=== PATIENT | female | born 1985 | race African-American/Black ===

== ENCOUNTER 2024-02-20 17:08 | Emergency (ER) | payer SELFPAY ==
[2024-02-20] VITALS (8 sets, daily range): BP systolic 110–116; BP diastolic 57–76; PULSE 67–92; RESP 14–16; TEMP 37; O2SAT 97–99
--- NOTE | ~2024-02-20 | CT_ITS ---
EXAMINATION: CT abdomen pelvis w con DATE: 02/20/2024 19:22 INDICATION: lower abd pain, hematuria, vag bleeding TECHNIQUE: Computed tomography (CT) of the abdomen and pelvis was performed with 100 mL Omnipaque-350 intravenous contrast. Automated exposure control and iterative reconstruction technique were employe d. The dose-length product was 1022.98 mGy-cm. COMPARISON: Ultrasound transvaginal, same date. FINDINGS: Lower thorax: Unremarkable Liver: Enlarged. Biliary/Gallbladder: Cholelithiasis. No inflammatory change. No bile duct dilation. Pancreas: No mass or duct dilation. Spleen: Mildly enlarged. Adrenals:No mass. Kidneys: No suspicious mass, obstructing stone, or hydronephrosis. GI tract: No small or large bowel dilation. Normal appendix. Mesentery/Peritoneum: No ascites, mass, or free air. Retroperitoneum: No mass. Pelvis: Anteverted, retroflexed uterus. Normal urinary bladder. Normal bilateral ovaries. Sterilizati on clips.. Soft Tissues: Small uncomplicated fat-containing umbilical hernia. Bones: No acute osseous finding. IMPRESSION: Hepatosplenomegaly. Otherwise, no acute abdominal pelvic process detected. Reviewed, dictated and finalized at location K.
--- NOTE | ~2024-02-20 | US_ITS ---
EXAMINATION: US transvaginal DATE: 02/20/2024 18:27 INDICATION: AUB, lower abd pain TECHNIQUE: Multiple transvaginal sonographic images of the pelvis were obtained. COMPARISON: None. FINDINGS: Uterus: 10.6 x 5.9 x 6.8 cm. Endometrial complex measures 7 mm. Right Ovary: 2.6 x 2.0 x 2.1 cm. Vascular flow is present. No adnexal mass. Left Ovary: Not visualized. No adnexal mass. There is no free fluid in the pelvis. IMPRESSION: Left ovary not visualized, otherwise normal transvaginal pelvic sonogram findings. Reviewed, dictated and finalized at location K. IMPRESSION: Left ovary not visualized, otherwise normal transvaginal pelvic sonogram xavier szymanski
--- NOTE | 2024-02-20 17:16 | ED.FEMALEGU ---
HPI - Female Genitourinary General Chief complaint: Vaginal Bleeding Stated complaint: ABNORMAL VAG BLEEDING Time Seen by Provider: 02/20/24 17:14 Source: patient Mode of arrival: ambulatory Limitations: no limitations and language barrier History of Present Illness HPI Narrative: Patient is a 38 y/o female who presents to the ED with c/o abnormal vaginal bleeding. patient is primarily Jordanian-speaking. [employer] monitor car operator was utilized for assistance with translation. Patient reports she had her normal menstrual cycle 2 weeks ago. She then began bleeding again on Sunday, states it has been persistent since then. States it has been fairly heavy with some clots. She reports pain throughout her lower abdomen, denies N/V, fevers, dysuria, hematuria, dizziness/lightheadedness. Patient does not currently have an OBGYN, states it has been 5 years since she has seen one. Related Data Allergies Allergy/AdvReac Type Severity Reaction Status Date / Time No Known Allergies Allergy Verified 02/20/24 17:32 Review of Systems Review of Systems: CONSTITUTIONAL: Denies fever, chills, or sweats. GASTROINTESTINAL: See HPI. GENITOURINARY: See HPI. NEUROLOGIC: Denies lightheadedness, dizziness, numbness, or weakness. All systems reviewed & are unremarkable except as noted in HPI and below Exam Narrative: GENERAL: Well appearing, well-nourished, non-toxic, in no acute distress. HEAD: Normocephalic, atraumatic. RESPIRATORY: Airway patent, respirations nonlabored. Clear to auscultation bilaterally, no rales, rhonchi, wheezing. CARDIOVASCULAR: Regular rate and rhythm without murmurs, rubs, or gallops. ABDOMINAL: Soft, Mild tenderness throughout suprapubic region, nondistended. Normoactive BS. PELVIC: Normal external genitalia. Mild amount of dark red bleeding in vaginal vault, no significant clots. Cervix appears unremarkable. No significant CMT. MUSCULOSKELETAL: Moves all extremities. No gross deformities. SKIN: Warm, dry, normal color. NEURO: A&O X3. Speech clear. Cranial nerves II-XII grossly intact. Steady gait. No ataxic movements. PSYCHIATRIC: Appropriate mood and affect. Normal interaction. Course Vital Signs Vital signs: Vital Signs Temperature 98.6 F 02/20/24 17:16 Pulse Rate 92 02/20/24 17:16 Respiratory Rate 16 02/20/24 17:16 Blood Pressure 116/76 02/20/24 17:16 Pulse Oximetry 99 02/20/24 17:16 Oxygen Delivery Room Air 02/20/24 17:16 Temperature 98.6 F 02/20/24 17:16 Pulse Rate 67 02/20/24 20:49 Respiratory Rate 14 02/20/24 20:49 Blood Pressure 112/63 02/20/24 20:49 Pulse Oximetry 99 02/20/24 20:49 Oxygen Delivery Room Air 02/20/24 17:16 MDM - Female Genitourinary MDM Narrative Medical decision making narrative: Patient presented to ED with abnormal vaginal bleeding, intermenstrual bleeding. Vital signs are stable upon arrival. No evidence of hemodynamic instability. CBC with hemoglobin of 11. No records to compare to. Microcytic. No leukocytosis. Normal platelets. BMP unremarkable. Urinalysis with lots of blood, no evidence of infection. Pelvic ultrasound obtained unremarkable. No adnexal masses. No uterine abnormalities. CT abd/pelvis obtained and also unremarkable, hepatosplenomegaly. pelvic exam was performed and without evidence of significant bleeding. No hemorrhage or pooling of fluid. Feel patient is safe for discharge home at this time with close OBGYN follow-up. Will referred to on-call OBGYN. Advised to continue to monitor at home, given strict return precautions. She agrees with plan. Discharged in stable condition. Vital signs stable at time of D/C. Medical Records Attestation: I reviewed the patient's medical records. Lab Data Attestation: I reviewed the patient's lab results. 02/20/24 17:33 02/20/24 17:33 Labs: Lab Results 02/20/24 02/20/24 Range/Units 17:33 18:43 WBC 10.0 (4.5-10.0) K/
[2024-02-20 17:39] LABS: Basophils Percent Auto 0.4 % (0.2-1.2); Eosinophils Absolute Auto 0.3 K/mm3 (0-0.3); Eosinophils Percent Auto 2.6 % (0-4.4); Immature Granulocyte Absolute 0.03 K/mm3 (0.00-0.031); Immature Granulocyte Percent A 0.3 % (0-0.5); Lymphocytes Absolute Auto 3.08 K/mm3 (0.9-3.2); Lymphocytes Percent Auto 30.9 % (18.3-44.2); Mean Corpuscular HGB Conc 30.6 g/dl (32-36); Mean Corpuscular Hemoglobin 23.2 pg (26-34); Mean Corpuscular Volume 75.8 fl (80-100); Monocytes Absolute Auto 0.6 K/mm3 (0.1-0.6); Monocytes Percent Auto 5.8 % (2.6-8.5); Platelet Count Result 360 k/mm3 (150-375); Red Blood Count 4.75 M/mm3 (4.2-5.4); Red Cell Distribution Width 14.9 % (11.5-14.5)
[2024-02-20 17:48] LABS: Anion Gap 8 mmol/L (4-12); Blood Urea Nitrogen 11 mg/dL (7-17); Calcium 8.9 mg/dL (8.4-10.2); Carbon Dioxide 27 mmol/L (22-30); Chloride 103 mmol/L (98-107); Estimated Glomerular Filt Rate > 60; Glucose 178 mg/dL (65-110); Potassium 3.8 mmol/L (3.4-5.0); Sodium 138 mmol/L (137-145)
[2024-02-20 18:52] LABS: Appearance Urine Clear (Clear); Bacteria Urine None Seen /hpf; Bilirubin Urine Negative (Negative); Blood Urine 3+ (Negative); Color Urine Yellow (Yellow); Glucose Urine UA Negative (Negative); Ketones Urine Negative (Negative); Leukocyte Esterase Ur Negative LEU/UL (Negative); Nitrate Urine Negative (Negative); Non Pathogenic Casts 0-2; Protein Urine Negative (Negative); RBC Urine >100 /hpf (0-2); Specific Grav Ur 1.008 (1.001-1.035); Squamous Epithelial Cell Urine None Seen /hpf (Few); Urobilinogen Urine 0.2 mg/dL (<2.0); WBC Urine 0-5 /hpf (0-3)
[2024-02-20 18:57] LABS: Add Urine Microscopic? YES
== END 2024-02-20 20:50 | disposition home or self-care (01) ==
PROVIDERS: Emergency Provider Physician Assistant
DX: N93.8 Other specified abnormal uterine and vaginal bleeding (principal); R16.2 Hepatomegaly with splenomegaly, not elsewhere classified
CPT/HCPCS: 36415; 74177; 76830; 80048; 81001; 85025; 99284; Q9967

== ENCOUNTER 2025-03-17 17:57 | Emergency (ER) | payer SELFPAY ==
[2025-03-17 18:07] VITALS: BP 117/77; PULSE 87; RESP 16; TEMP 36.6; O2SAT 98
--- NOTE | 2025-03-17 18:17 | ED.FEMALEGU ---
HPI - Female Genitourinary General Chief complaint: Urogenital-Female Stated complaint: Urinary Irritation Time Seen by Provider: 03/17/25 18:17 Source: patient and RN notes reviewed Mode of arrival: ambulatory Limitations: no limitations History of Present Illness HPI Narrative: 39 y/o female presented for c/o painful urination x3 weeks. Reports urinary frequency and urgency. Endorses diarrhea today. Denies hematuria, nausea, vomiting, abdominal pain, flank pain, constipation, fevers or chills. Related Data Allergies Allergy/AdvReac Type Severity Reaction Status Date / Time No Known Allergies Allergy Verified 03/17/25 18:17 Review of Systems Review of Systems: CONSTITUTIONAL: Denies body aches, fever, chills, or sweats. CARDIOVASCULAR: Denies chest pain, palpitations, or edema. RESPIRATORY: Denies cough or dyspnea. GASTROINTESTINAL: Denies abdominal pain, nausea, vomiting, or diarrhea. GENITOURINARY: Reports dysuria, frequency, urgency,denies hematuria, flank pain, discharge SKIN: Denies rash, itching, or wounds. MUSCULOSKELETAL: Denies back pain or myalgia. PMFSH Comments At time of signature, I have reviewed and agree with nursing past medical, surgical, social and family history unless otherwise noted. Please see nursing chart for further information. There is no relevant family history pertinent to the presenting complaint Exam Narrative: GENERAL: Well-appearing and in no acute distress. ENT: Mucous membranes pink and moist. NECK: Normal AROM. Supple. CHEST: No respiratory distress. Clear to auscultation. HEART: Regular rate and rhythm. ABDOMEN: Soft, nontender, nondistended, normal active bowel sounds. No CVA tenderness SKIN: Warm, dry, no rash. NEURO: No focal deficits. Alert and oriented x3. Gait steady. PSYCH: Normal affect. Course Course Emergency Course: Patient is aware of diagnosis, understands and agrees to treatment plan. Anticipatory guidance given. Patient agrees to follow-up as directed and is aware of reasons to seek care at the emergency department. Portions of this record may have been created with voice recognition software Level of Care: Express Care Visit Vital Signs Vital signs: Vital Signs Temperature 97.9 F 03/17/25 18:07 Pulse Rate 87 03/17/25 18:07 Respiratory Rate 16 03/17/25 18:07 Blood Pressure 117/77 03/17/25 18:07 Pulse Oximetry 98 03/17/25 18:07 Oxygen Delivery Room Air 03/17/25 18:07 Temperature 97.9 F 03/17/25 18:07 Pulse Rate 87 03/17/25 18:07 Respiratory Rate 16 03/17/25 18:07 Blood Pressure 117/77 03/17/25 18:07 Pulse Oximetry 98 03/17/25 18:07 Oxygen Delivery Room Air 03/17/25 18:07 Reviewed MDM - Female Genitourinary MDM Narrative Medical decision making narrative: Discussed physical exam findings and urine dip. Will treat for UTI and yeast today, v/u. Advised supportive measures and signs/symptoms to go to the ER. Pt is appropriate for outpt treatment and f/u. At time of reviewing DC instructions, pt requested medicine to lose weight, chronic bilateral knee pain, occasional sweating and chest pains. Pt is advised to go to the ER for the complaint of chest pain and further evaluation at this time. Pt refuses at this time. She is aware of the risk of cardiac etiology. Pt denies cp at this time. Pt is primarily [place] Rican speaking. Unable to utilize the in home sales consultant service due to equipment failure. Pt's dtr assisted with translation per pt request and had to utilize [employer] translate. Differential Diagnosis Differential diagnosis: Likely urinary tract infection, bacterial vaginosis, vaginitis and cystitis Lab Data Labs: Lab Results 03/17/25 Range/Units 18:47 POC Urine Color Yellow POC Urine Clarity Cloudy POC Urine pH 6.0 POC Ur Specif [place] 1.015 POC Urine Protein Negative (Negative) POC Ur Glucose (UA) Negative (Negative) POC Urine Ketones Negative (Negative) POC Urine Blood Trace (Negative) POC Urine Nitrite Negative (Negative) POC Urine Bilirubin Negative (Negative) POC Urine Urobilinogen 1.0 POC U Leukocyte Esteras 1+ (Negative) Discharge Plan Discharge Clinical Impression: Urinary tract infection Qualifiers: Urinary tract infection type: site unspecified Hematuria presence: without hematuria Qualified Code(s): N39.0 - Urinary tract infection, site not specified Vaginitis Qualifiers: Chronicity: acute Qualified Code(s): N76.0 - Acute vaginitis Patient Disposition: Home Condition: Stable Instructions: Antibiotic Form, Urinary Tract Infection in Women (ED), Yeast Infection (ED) Additional Instructions: Hablamos de la necesidad de ir a urgencias si tienes dolor en el pecho, que puede estar relacionado con el coraz?n. Ahora te niegas a ir a urgencias. [place] el antibi?tasneem seg?n lo prescrito. Se analizar? la orina para un cultivo que identificar? el tipo de bacteria que causa la infecci?n. Si el cultivo muestra que el antibi?tasneem no elimina la infecci?n, se le notificar? y se le recetar? un nuevo antibi?tasneem. [place] la ingesta de agua. Necesitar? hablar con un m?dico. Llame para programar roor nataliia. Acuda a urgencias si presenta cualquier empeoramiento de los s?ntomas o inquietud. Patient Language: [place]ican Prescriptions: New fluconazole 150 mg tablet 150 mg PO DAILY Qty: 2 0RF nitrofurantoin monohyd/m-cryst [Macrobid] 100 mg capsule 100 mg PO Q12H 5 Days Qty: 10 0RF Rx Instructions: must administer with a meal/food Follow-up/Referrals: PHYSICIAN,FINANCIAL SYSTEMS ANALYST [Primary Care Provider] - Time of Disposition: 18:43
[2025-03-17 18:48] LABS: EDUAAPPEAR Cloudy; EDUABILI Negative (Negative); EDUABLOOD Trace (Negative); EDUACOLOR1 Yellow; EDUAGLUCOSE Negative (Negative); EDUAKETONE Negative (Negative); EDUALEUKO 1+ (Negative); EDUANITRATE Negative (Negative); EDUAPH 6.0; EDUAPROTEIN Negative (Negative); EDUASPGRAVITY 1.015; EDUAUROBILI 1.0
== END 2025-03-17 18:50 | disposition home or self-care (01) ==
PROVIDERS: Emergency Provider Nurse Practitioner Family
DX: N39.0 Urinary tract infection, site not specified (principal); N76.0 Acute vaginitis
CPT/HCPCS: 81003; 99213; G0463

== ENCOUNTER 2025-03-28 18:10 | Emergency (ER) | payer SELFPAY ==
--- NOTE | ~2025-03-28 | CT_ITS ---
EXAMINATION: CT abdomen pelvis wo con DATE: 03/28/2025 20:24 INDICATION: lower abd pain, back pain, uti TECHNIQUE: Computed tomography (CT) of the abdomen and pelvis was performed without intravenous contr ast. Automated exposure control and iterative reconstruction technique were employed. The dose-length product was 1077.00 mGy-cm. COMPARISON: 02/20/2024. FINDINGS: Lower thorax: Unremarkable Liver: Enlarged. Biliary/Gallbladder: Cholelithiasis. No inflammatory changes. No bile duct dilation. Pancreas: No mass or duct dilation. Spleen: Normal. Adrenals:No mass. Kidneys: No suspicious mass, obstructing stone, or hydronephrosis. GI tract: No small or large bowel dilation. Normal appendix. Mesentery/Peritoneum: No ascites, mass, or free air. Retroperitoneum: No mass. Pelvis: Moderately distended urinary bladder with mild wall thickening. Normal uterus. Normal bilater al ovaries. Bilateral tubal ligation clips. Soft Tissues: Small uncomplicated fat-containing umbilical hernia. Bones: No acute osseous finding. Mild degenerative disc disease at L4-5. Severe degenerative disc di sease at L5-S1. No severe central canal or neural foraminal narrowing. IMPRESSION: Hepatomegaly. Cholelithiasis, without CT evidence of cholecystitis. Bladder wall thickening as can be seen with cystitis. Otherwise, no acute abdominopelvic process detected. Reviewed, dictated and finalized at location K.
[2025-03-28 18:12] VITALS: BP 100/80; PULSE 72; RESP 16; TEMP 36.6; O2SAT 98
--- OUTSIDE RECORDS SUMMARY | 2025-03-28 18:12 | XMS_ITS | Clinical Summary ---
Author Organization [facility] Address [address] [place] [address] Care Team Providers Care Wind Turbine Sheet Metal Worker Name Role Phone Unknown, Notinfile Primary Care Provider Unavail able No, Physician Unavailable Unknown, Notinfile Unavailable Unavailable Allergies No known active allergies Surgical History Surgery Date Site/Laterality Comments US ABDOMEN COMPLETE W LIVER DOPPLER (C) 09/20/2018 R ight Social History Tobacco Use Types Packs/Day Years Used Date Smoking Tobacco: Never Assessed Personal Safety Answer Date Recorded Have you ever been in or are you currently in a harmful physical or emotional relationship or is someone making you feel afraid or unsafe? 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 Gender Identity Not on file Sexual Orientation Not on file Obstetrics History Last Filed Vital Signs Vital Sign Reading Time Taken Comments Blood Pressure 119/76 03/21/2023 6:59 PM CDT Pulse 77 03/21/2023 6:59 PM CDT Temperature 36.4 C (97.6 F) 03/21/2023 6:59 PM CDT Respiratory Rate 18 03/21/2023 6:59 PM CDT Oxygen Saturation 99% 03/21/2023 6:59 PM CDT Inhaled Oxygen Concentration - - Weight 86.4 kg (190 lb 7.6 oz) 03/21/2023 6:59 P M CDT Height 165.1 cm (5' 5) 03/21/2023 7:16 PM CDT Body Mass Index 31.7 03/21/2023 6:59 PM CDT Plan of Treatment Health Maintenance Due Date Last Done Comments Breast Cancer Screening-Mammogram 1985 Cervical Cancer Screening 1983 Depression Screening 1983 Hepatitis C Screening 1983 Varicella Vaccines (1 of 2 - 13+ 2-dose series) 1996 Hepatitis B Screening 2001 Regular Well Visit/Exam 18-64 2001 HPV Vaccines (1 - 3-dose SCD M series) 2010 Covid-19 Vaccine (2 - 4-2 5 season) 2024 09/24/2021 Influenza Vaccine (#1) 2025 8, 07/29/2015 DTaP/Tdap/Td Vaccine (2 - Td or Tdap) 07/02/2028 07/02/2018 Pneumococcal vaccine <65 Aged Out No longer eligible based on patient's age to complete this topic Insurance Care Teams Wind Turbine Sheet Metal Worker Relationship Specialty Start Date End Date Unknown, Notinfile PCP - General 03/21/23 No, Physician 03/21/23 Unknown, Notinfile 01/21/23
--- OUTSIDE RECORDS SUMMARY | 2025-03-28 18:12 | XMS_ITS | Clinical Summary ---
Author Organization [facility] Address [address] [place] [address] Care Team Providers Care Marketing Project Lead Name Role Phone Unavailable Primary Care Provider Unavailabl e Source Comments [facility],non-owned Affiliates and Associated Physician Practices is amultiple site organization consisting of ambulatory clinics and hospital sitesin [place], [place], [place] and [place]. This disclosure is being madepursuant to the Care Everywhere program and may not contain all information available regarding this patient. Last updated 18.[facility] [employer] Allergies No known active allergies Medications * Be aware that medications may not be up to date on this document. Alwaysverify current medications with the patient. Vit-Fe Fumarate-FA ( VITAMIN) 28-0.8 MG tablet Take 1 tablet by mouth once daily Active insulin NPH (HUMULIN N; NOVOLIN N) vial Inject 18 Units subcutaneously at bedtime Active Active Problems Problem Noted Date Diagnosed Date Polyhydramnios affecting 08/15/2018 Insulin controlled gestation al diabetes mellitus (GDM) in third trimester 06/25/2018 Family History Relation Name Status Comments Father Alive Maternal Grandfather Alive Maternal Grandmother Mother Alive Paternal Grandfather Paternal Grandmother Alive Social History Tobacco Use Types Packs/Day Years Used Date Smoking Tobacco: Never Smokeless Tobacco: Never Alcohol Use Standard Drinks/Week Comments Yes 0 (1 standard drink = 0.6 oz pur e alcohol) Comments No Sex and Gender Information Value Date Recorded Sex Assigned at Not on file Legal Sex Female 7:11 AM BOGGER OPERATOR Gender Identity Not on file Sexual Orientation Not on file Last Filed Vital Signs Vital Sign Reading Time Taken Comments Blood Pressure 94/58 08/15/2018 10:23 AM BOGGER OPERATOR Pulse 100 08/15/2018 10:23 AM BOGGER OPERATOR Temperature - - Respiratory Rate 16 08/01/2018 9:33 AM BOGGER OPERATOR Oxygen Saturation - - Inhaled Oxygen Concentration - - Weight 96.2 kg (212 lb 1.6 oz) 08/15/2018 10:23 AM BOGGER OPERATOR Height 154.9 cm (5' 1) 08/15/2018 10:23 AM BOGGER OPERATOR Body Mass Index 40.08 08/15/2018 10:23 AM BOGGER OPERATOR Plan of Treatment Health Maintenance Due Date Last Done Comments LIPID TESTING 1983 MAMMOGRAM 1983 HIV SCREENING 1998 HEPATITIS C SCREENING 09/20/2001 DTAP/TDAP/TD VACCINES (1 - Tdap) 2002 HEPATITIS B VACCINE (1 of 3 - 19+ 3-dose series) 2002 HPV VACCINE (1 - 3-dose SCDM series) 2010 COVID-19 VACCINE ( - 2023-2 5 season) 2024 DEPRESSION SCREENING 08/27/2024 INFLUENZA VACCINE (#1) 2025 ZOSTER VACCINE (1 of 2) 2033 HIB VACCINE Aged Out No longer eligi ble based on patient's age to complete this topic MENINGOCOCCAL (Group B) VACC INE SHARED DECISION-MAKING Aged Out No longer eligibl e based on patient's age to complete this topic MENINGOCOCCAL GROUPS A/C/Y/W VACCINE Aged Out No longer eligible b ased on patient's age to complete this topic PNEUMOCOCCAL VACCINE Aged Out No long er eligible based on patient's age to complete this topic Insurance [facility] * Guarantor: MONIK NASH Account Type Relation to Patient Date of Phone Billing Address Personal/Family 1985 [address] [place] [address] [facility]
--- OUTSIDE RECORDS SUMMARY | 2025-03-28 18:12 | XMS_ITS | Referral Summary ---
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
[2025-03-28 18:48] VITALS: BP 118/78; PULSE 65; RESP 16; TEMP 36.4; O2SAT 99
[2025-03-28 18:58] LABS: BEDSIDEPREGUCG Negative (Negative)
[2025-03-28 19:21] LABS: Add Urine Microscopic? YES; Appearance Urine Clear (Clear); Glucose Urine UA Negative (Negative); Leukocyte Esterase Ur 3+ LEU/UL (Negative); Nitrate Urine Negative (Negative); Non Pathogenic Casts 0-2; Specific Grav Ur 1.005 (1.001-1.035)
--- OUTSIDE RECORDS SUMMARY | 2025-03-28 19:38 | XMS_ITS | Referral Summary ---
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
--- OUTSIDE RECORDS SUMMARY | 2025-03-28 19:38 | XMS_ITS | Clinical Summary ---
Author Organization [facility] Address [address] [place] [address] Care Team Providers Care Director Power Name Role Phone Unavailable Primary Care Provider Unavailabl e Source Comments [facility],non-owned Affiliates and Associated Physician Practices is amultiple site organization consisting of ambulatory clinics and hospital sitesin [place], [place], [place] and [place]. This disclosure is being madepursuant to the Care Everywhere program and may not contain all information available regarding this patient. Last updated 18.[facility] [employer] Allergies No known active allergies Medications * [...] on file Legal Sex Female 7:11 AM LINE SERVICE ATTENDANT Gender Identity Not on file Sexual Orientation Not on file Last Filed Vital Signs Vital Sign Reading Time Taken Comments Blood Pressure 94/58 08/15/2018 10:23 AM LINE SERVICE ATTENDANT Pulse 100 08/15/2018 10:23 AM LINE SERVICE ATTENDANT Temperature - - Respiratory Rate 16 08/01/2018 9:33 AM LINE SERVICE ATTENDANT Oxygen Saturation - - Inhaled Oxygen Concentration - - Weight 96.2 kg (212 lb 1.6 oz) 08/15/2018 10:23 AM LINE SERVICE ATTENDANT Height 154.9 cm (5' 1) 08/15/2018 10:23 AM LINE SERVICE ATTENDANT Body Mass Index 40.08 08/15/2018 10:23 AM LINE SERVICE ATTENDANT Plan of Treatment Health Maintenance Due Date [...] patient's age to complete this topic Insurance [facility] * Guarantor: MONIK NASH Account Type Relation to Patient Date of Phone Billing Address Personal/Family 1985 [address] [place] [address] [facility]
--- OUTSIDE RECORDS SUMMARY | 2025-03-28 19:38 | XMS_ITS | Clinical Summary ---
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
--- NOTE | 2025-03-28 20:43 | ED.FEMALEGU ---
HPI - Female Genitourinary General Chief complaint: Urogenital-Female Stated complaint: Poss UTI, frequency, burning Time Seen by Provider: 03/28/25 18:37 Source: patient Mode of arrival: ambulatory Limitations: no limitations and language barrier History of Present Illness HPI Narrative: Patient is a 39-year-old female who presents the ED with report of dysuria. Patient is primarily Malagasy-speaking. [employer] translator and interpreter was utilized for assistance with translation. Patient reports she has been having burning with urination, painful urination, decreased urine output, urinary frequency, small specks of blood in her urine over the past few days. Reports some pain throughout her lower abdomen and diffusely throughout her lower back. Denies nausea, vomiting, fevers. Denies history of UTI. Denies concern for sexually transmitted infections. Related Data Allergies Allergy/AdvReac Type Severity Reaction Status Date / Time No Known Allergies Allergy Verified 03/28/25 18:12 Review of Systems Review of Systems: All systems reviewed & are unremarkable except as noted in HPI. All systems reviewed & are unremarkable except as noted in HPI and below Exam Narrative: GENERAL: Well appearing, obese with BMI of 36.4, non-toxic, in no acute distress. HEAD: Normocephalic, atraumatic. RESPIRATORY: Airway patent, respirations nonlabored. Clear to auscultation bilaterally, no rales, rhonchi, wheezing. CARDIOVASCULAR: Regular rate and rhythm without murmurs, rubs, or gallops. ABDOMINAL: Soft, mild tenderness throughout suprapubic region, nondistended. Normoactive BS. MUSCULOSKELETAL: Moves all extremities. No gross deformities. SKIN: Warm, dry, normal color. NEURO: A&O X3. Speech clear. PSYCHIATRIC: Appropriate mood and affect. Normal interaction. Course Vital Signs Vital signs: Vital Signs Temperature 97.8 F 03/28/25 18:12 Pulse Rate 72 03/28/25 18:12 Respiratory Rate 16 03/28/25 18:12 Blood Pressure 100/80 03/28/25 18:12 Pulse Oximetry 98 03/28/25 18:12 Temperature 97.5 F L 03/28/25 18:48 Pulse Rate 76 03/28/25 22:18 Respiratory Rate 16 03/28/25 22:18 Blood Pressure 127/87 03/28/25 22:18 Pulse Oximetry 99 03/28/25 22:18 Oxygen Delivery Room Air 03/28/25 18:48 MDM - Female Genitourinary MDM Narrative Medical decision making narrative: Patient presented to ED with several day history of urinary complaints, lower abdominal pain, lower back pain. Vital signs stable upon arrival. Patient is in no acute distress. UA here does appear infectious with 3+ leuk esterase, 21-50 WBC. Urine is negative. Laboratory studies are reassuring. No leukocytosis. Stable H&H. Stable kidney function. CT scan of abdomen/pelvis was obtained and without significant acute findings. Does show evidence of cystitis. Cholelithiasis without evidence of cholecystitis. Patient updated on lab and imaging results. Will be started on Keflex for UTI. Advised patient to stay well hydrated, recommend Tylenol/ibuprofen as needed for pain. Recommended follow-up with PCP for culture results. Given return precautions. She agrees with plan. Discharged in stable condition. Medical Records Attestation: I reviewed the patient's medical records. Lab Data Attestation: I reviewed the patient's lab results. 03/28/25 21:08 03/28/25 21:08 Labs: Lab Results 03/28/25 03/28/25 03/28/25 Range/Units 18:52 18:56 21:08 WBC 8.1 (4.5-10.0) K/mm3 RBC 5.70 H (4.2-5.4) M/mm3 Hgb 13.3 (12.0-15.0) g/dL Hct 44.7 (37.0-47.0) % MCV 78.4 L (80-100) fl MCH 23.3 L (26-34) pg MCHC 29.8 L (32-36) g/dl RDW 14.2 (11.5-14.5) % Plt Count 317 (150-375) k/mm3 MPV 10.2 (7.4-10.4) fl Immature Gran % (Auto) Not Reportable Neut % (Auto) Not Reportable Lymph % (Auto) Not Reportable [place] % (Auto) Not Reportable Eos % (Auto) Not Reportable Baso % (Auto) Not Reportable Lymph # (Auto) Not Reportable [place] # (Auto) Not Reportable Eos # (Auto) Not Reportable Baso # (Auto) Not Reportable Abs Immat Gran (auto) Not Reportable Absolute Neuts (auto) Not Reportable Absolute Nucleated RBC Not Reportable Total Counted 100 Neutrophils % (Manual) 49 (46-73) % Band Neutrophils % 1 (0-6) % Lymphocytes % (Manual) 39.0 (18-44) % Monocytes % (Manual) 4 (3-9) % Eosinophils % (Manual) 6 H (0-4) % Basophils % (Manual) 1 (0-1) % Nucleated RBC % Not Reportable Abs Neuts (Manual) 4.05 (1.3-6.7) K/mm3 Abs Lymphs (Manual) 3.15 (1.1-4.5) K/mm3 Abs Monocytes (Manual) 0.32 (0.1-0.90) K/mm3 Absolute Eos (Manual) 0.48 (0.02-0.50) K/mm3 Abs Basophils (Manual) 0.08 (0.0-0.1) K/mm3 Smudge Cells Present Platelet Estimate Adequate (Adequate) Giant Platelets Present Anisocytosis 1+ Schistocytes None seen Sodium 134 L (137-145) mmol/L Potassium 3.6 (3.4-5.0) mmol/L Chloride 99 (98-107) mmol/L Carbon Dioxide 26 (22-30) mmol/L Anion Gap 9 (4-12) mmol/L BUN 11 (7-17) mg/dL Creatinine 0.62 L (0.7-1.0) mg/dL Estim Creat Clear Calc 110 ml/min Estimated GFR > 60 (59 - ) Glucose 95 (65-110) mg/dL Calcium 9.7 (8.4-10.2) mg/dL Urine Color Yellow (Yellow) Urine Appearance Clear (Clear) Urine pH 6.5 (5.0-9.0) Ur Specific [place] 1.005 (1.001-1.035) Urine Protein Negative (Negative) mg/dL Urine Glucose (UA) Negative (Negative) mg/dL Urine Ketones Negative (Negative) mg/dL Ur Blood (Man) Trace (Negative) Urine Nitrate Negative (Negative) Urine Bilirubin Negative (Negative) Urine Urobilinogen 0.2 (<2.0) mg/dL Leukocyte Esterase Rfl 3+ H (Negative) NOLVIA/UL Urine RBC 0-2 (0-2) /hpf Urine WBC 21-50 H (0-3) /hpf Ur Squamous Epith Cells None seen (Few) /hpf Urine Bacteria None seen /hpf Urine Casts 0-2 POC Urine HCG, Qual Negative (Negative) Imaging Data Attestation: I personally reviewed and interpreted this imaging study as follows: Radiologist's impression: ITS Impressions Abdomen/Pelvis CT 03/28/25 20:29 IMPRESSION: Hepatomegaly. Cholelithiasis, without CT evidence of cholecystitis. Bladder wall thickening as can be seen with cystitis. Otherwise, no acute abdominopelvic process detected. Discharge Plan Discharge Clinical Impression: Urinary tract infection Qualifiers: Urinary tract infection type: acute cystitis Hematuria presence: without hematuria Qualified Code(s): N30.00 - Acute cystitis without hematuria Patient Disposition: Home Condition: Stable Instructions: Antibiotic Form, Urinary Tract Infection in Women (ED), Hematuria (ED), Dysuria (ED) Additional Instructions: Take antibiotics as prescribed for urinary tract infection. Stay well hydrated. Continue Tylenol/ibuprofen if needed for pain. Follow-up with your primary care doctor for further evaluation. Return to the ED for new or worsening concerns, unable to keep down food or drink, persistent fevers, difficulty urinating, or any other symptoms of concern. Patient Language: Malagasy Prescriptions: New cephalexin 500 mg capsule 500 mg PO Q6H 7 Days Qty: 28 0RF No Action fluconazole 150 mg tablet 150 mg PO DAILY Qty: 2 0RF nitrofurantoin monohyd/m-cryst [Macrobid] 100 mg capsule 100 mg PO Q12H 5 Days Qty: 10 0RF Rx Instructions: must administer with a meal/food Follow-up/Referrals: Robson Jerome MD [Physician] - (PRIMARY CARE) PHYSICIAN,EXPERIENCE DESIGN DIRECTOR [Primary Care Provider] - Time of Disposition: 21:58
[2025-03-28 21:16] LABS: Hematocrit 44.7 % (37.0-47.0); Hemoglobin 13.3 g/dL (12.0-15.0); Mean Corpuscular HGB Conc 29.8 g/dl (32-36); Mean Corpuscular Hemoglobin 23.3 pg (26-34); Mean Corpuscular Volume 78.4 fl (80-100); Platelet Count Result 317 k/mm3 (150-375); Red Blood Count 5.70 M/mm3 (4.2-5.4); White Blood Count 8.1 K/mm3 (4.5-10.0)
[2025-03-28 21:34] LABS: Anion Gap 9 mmol/L (4-12); Blood Urea Nitrogen 11 mg/dL (7-17); Calcium 9.7 mg/dL (8.4-10.2); Carbon Dioxide 26 mmol/L (22-30); Chloride 99 mmol/L (98-107); Estimated CRCL calculation 110 ml/min; Estimated Glomerular Filt Rate > 60; Glucose 95 mg/dL (65-110); Potassium 3.6 mmol/L (3.4-5.0); Sodium 134 mmol/L (137-145)
[2025-03-28 21:43] LABS: Band Neutrophils Percent 1 % (0-6); Basophils Absolute Manual 0.08 K/mm3 (0.0-0.1); Basophils Percent Manual 1 % (0-1); Eosinophils Absolute Manual 0.48 K/mm3 (0.02-0.50); Eosinophils Percent Manual 6 % (0-4); Lymphocytes Absolute Manual 3.15 K/mm3 (1.1-4.5); Lymphocytes Percent Manual 39.0 % (18-44); Monocytes Absolute Manual 0.32 K/mm3 (0.1-0.90); Monocytes Percent Manual 4 % (3-9); Neutrophils Absolute Manual 4.05 K/mm3 (1.3-6.7); Neutrophils Percent Manual 49 % (46-73); Total Cells Counted 100
[2025-03-28 21:44] LABS: Anisocytosis 1+; Giant Platelets Present; Schistocytes None Seen
[2025-03-28 21:45] LABS: Smudge Cells PRESENT
[2025-03-28] MEDS: CEPHALEXIN 500 MG CAPSULE PO (22:14)
[2025-03-28 22:18] VITALS: BP 127/87; PULSE 76; RESP 16; O2SAT 99
== END 2025-03-28 22:19 | disposition home or self-care (01) ==
PROVIDERS: Student in an Organized Health Care Education/Training Program; Emergency Provider Physician Assistant
DX: N30.00 Acute cystitis without hematuria (principal); R16.0 Hepatomegaly, not elsewhere classified; K80.20 Calculus of gallbladder without cholecystitis without obstruction
CPT/HCPCS: 36415; 74176; 80048; 81001; 81025; 85025; 87086; 99284; A9270